=== PATIENT | female | born 1950 | race Caucasian/White ===

== ENCOUNTER 2023-04-12 07:45 | Outpatient (CLI) | payer MEDICARE | END 2023-04-12 07:46 | disposition home or self-care (01) | LOC: RAD 07:45 | PROVIDERS: ATTEND Internal Medicine Hospice and Palliative Medicine | DX: R06.00 Dyspnea, unspecified (principal); J90 Pleural effusion, not elsewhere classified; R91.8 Other nonspecific abnormal finding of lung field | CPT/HCPCS: 71046 ==

== ENCOUNTER 2023-04-20 14:35 | Outpatient (CLI) | payer MEDICARE | END 2023-04-20 14:36 | disposition home or self-care (01) | LOC: BICRAD 14:35 | DX: J90 Pleural effusion, not elsewhere classified (principal) | CPT/HCPCS: 71045 ==

== ENCOUNTER 2023-07-19 08:53 | Outpatient (CLI) | payer MEDICARE | END 2023-07-19 08:54 | disposition home or self-care (01) | LOC: BICULT 08:53 | PROVIDERS: ATTEND Internal Medicine Hospice and Palliative Medicine | DX: R07.89 Other chest pain (principal); L98.8 Other specified disorders of the skin and subcutaneous tissue | CPT/HCPCS: 76999 ==

== ENCOUNTER 2023-08-01 08:46 | Inpatient (IN) | payer MEDICARE ==
[2023-08-01] MEDS ORDERED: Ondansetron PF 4 MG/2 ML Vial ONE (09:27)
[2023-08-01] MEDS ORDERED: Morphine 4 MG/ML VIAL ONE ×2 (09:27→10:11)
[2023-08-01] MEDS ORDERED: Iopamidol-370 76% 500 ML MDV (1 ML CHARGE) ONE (10:05)
[2023-08-01 10:31] LABS: ALT (SGPT) 11 U/L (8-55); AST (SGOT) 22 U/L (5-34); Albumin 3.9 g/dL (3.4-4.8); Alkaline Phosphatase 109 U/L (40-110); Anion Gap 17 mmol/L (10-20); BUN (Urea Nitrogen) 15 mg/dL (9.8-20.1); Bilirubin, Total 1.6 mg/dL (0.2-1.2); Calc. Creatinine Clearance 0 mL/min (70-130); Calcium 9.9 mg/dL (7.8-10.44); Carbon Dioxide 23 mmol/L (23-31); Chloride 103 mmol/L (98-107); Estimated GFR 53; Globulin 3.9 g/dL (2.4-3.5); Glucose 144 mg/dL (80-115); Lipase 36 U/L (8-78); Potassium 4.3 mmol/L (3.5-5.1); Protein, Total 7.8 g/dL (5.8-8.1); Sodium 139 mmol/L (136-145)
[2023-08-01 10:34] LABS: Troponin I Less than 0.010 ng/mL (< 0.028)
[2023-08-01 10:39] LABS: #Basophils 0.1 thou/uL (0.0-0.2); #Eosinphils 0.1 thou/uL (0.0-0.7); #Monocytes 0.6 thou/uL (0.11-0.59); #Neutrophils 8.1 thou/uL (1.40-6.50); %Basophils 0.6 % (0.0-1.0); %Eosinophils 0.6 % (0.0-10.0); %Lymphocytes 11.4 % (21.0-51.0); %Monocytes 5.8 % (0.0-10.0); %Neutrophils 81.3 % (42.0-75.0); Hemoglobin 14.9 g/dL (12.0-16.0); Mean Corpuscular Hemoglobin 29.6 pg (27.0-31.0); Mean Corpuscular Volume 95.4 fl (78.0-98.0); Mean Platelet Volume 10.7 fL (7.4-10.4); Platelet Count 185 10x3/uL (130-400); RBC Distribution Width 13.3 % (11.5-14.5); Red Blood Cell (RBC) Count 5.03 mill/uL (4.20-5.40)
[2023-08-01] MEDS ORDERED: HYDROcodone/Acetaminophen 5/325 mg Tablet PO PRN ×2 (13:23)
[2023-08-01] MEDS ORDERED: Calcium Carbonate 500 MG ChewTAB PO PRN (13:23)
[2023-08-01] MEDS ORDERED: Ondansetron ODT 4 MG TAB PO PRN (13:23)
[2023-08-01] MEDS ORDERED: Senokot S 8.6-50 MG TAB PO PRN (13:23)
[2023-08-01] MEDS ORDERED: Acetaminophen 650 MG Suppository PR PRN (13:23)
[2023-08-01] MEDS ORDERED: Guaifenesin DM 100-10/5 ML UDCUP PO PRN (13:23)
[2023-08-01] MEDS ORDERED: Bisacodyl 5 MG TAB PO PRN (13:23)
[2023-08-01] MEDS ORDERED: Acetaminophen 325 MG TAB PO PRN (13:23)
[2023-08-01] MEDS ORDERED: Bisacodyl 10 MG SUPP PR PRN (13:23)
[2023-08-01 15:21] VITALS: BMI 38.4
[2023-08-01] MEDS ORDERED: Albuterol 200 PUFF (6.7GM INHALER) INH PRN (16:01)
[2023-08-01] MEDS: Lactated Ringer's 1,000 ML IV SCH (16:15)
[2023-08-01] MEDS: Ondansetron PF 4 MG/2 ML Vial IVP PRN (18:06)
[2023-08-01] MEDS: Morphine 2 MG/ML VIAL SLOW IVP PRN (18:06)
[2023-08-01] MEDS ORDERED: Ketorolac Tromethamine 30 MG (1 mL) VIAL IVP SCH (19:45)
[2023-08-02] MEDS: Lactated Ringer's 1,000 ML IV SCH ×4 (02:43→22:57)
[2023-08-02] MEDS: Morphine 2 MG/ML VIAL SLOW IVP PRN (05:10)
[2023-08-02 05:13] LABS: #Basophils 0.1 thou/uL (0.0-0.2); #Eosinphils 0.1 thou/uL (0.0-0.7); #Monocytes 0.9 thou/uL (0.11-0.59); #Neutrophils 10.9 thou/uL (1.40-6.50); %Basophils 0.5 % (0.0-1.0); %Eosinophils 0.5 % (0.0-10.0); %Lymphocytes 7.2 % (21.0-51.0); %Monocytes 7.2 % (0.0-10.0); %Neutrophils 84.3 % (42.0-75.0); Hemoglobin 13.5 g/dL (12.0-16.0); Mean Corpuscular HGB CONC 31.4 g/dL (32.0-36.0); Mean Corpuscular Hemoglobin 29.6 pg (27.0-31.0); Mean Corpuscular Volume 94.3 fl (78.0-98.0); Platelet Count 201 10x3/uL (130-400); RBC Distribution Width 13.3 % (11.5-14.5); Red Blood Cell (RBC) Count 4.56 mill/uL (4.20-5.40)
[2023-08-02 05:45] LABS: ALT (SGPT) 77 U/L (8-55); AST (SGOT) 113 U/L (5-34); Albumin 3.3 g/dL (3.4-4.8); Alkaline Phosphatase 124 U/L (40-110); Anion Gap 13 mmol/L (10-20); BUN (Urea Nitrogen) 17 mg/dL (9.8-20.1); Bilirubin, Total 2.1 mg/dL (0.2-1.2); Calc. Creatinine Clearance 88 mL/min (70-130); Calcium 9.5 mg/dL (7.8-10.44); Carbon Dioxide 25 mmol/L (23-31); Chloride 104 mmol/L (98-107); Estimated GFR 53; Globulin 3.5 g/dL (2.4-3.5); Glucose 92 mg/dL (80-115); Potassium 4.4 mmol/L (3.5-5.1); Protein, Total 6.8 g/dL (5.8-8.1); Sodium 138 mmol/L (136-145)
[2023-08-02] MEDS: Ketorolac Tromethamine 30 MG (1 mL) VIAL IVP SCH ×3 (06:18→17:55)
[2023-08-02] MEDS: Levothyroxine Sodium 125 MCG TAB PO SCH (08:24)
[2023-08-02] MEDS ORDERED: Acetaminophen 650 MG Suppository PR PRN (12:30)
[2023-08-02] MEDS ORDERED: Acetaminophen 325 MG TAB PO PRN (12:30)
[2023-08-02] MEDS ORDERED: HYDROcodone/Acetaminophen 5/325 mg Tablet PO PRN ×2 (12:30)
[2023-08-02 16:10] LABS: Anion Gap 14 mmol/L (10-20); BUN (Urea Nitrogen) 22 mg/dL (9.8-20.1); Calc. Creatinine Clearance 79 mL/min (70-130); Calcium 9.2 mg/dL (7.8-10.44); Carbon Dioxide 24 mmol/L (23-31); Chloride 102 mmol/L (98-107); Estimated GFR 47; Glucose 104 mg/dL (80-115); Potassium 5.3 mmol/L (3.5-5.1); Sodium 135 mmol/L (136-145)
[2023-08-02] MEDS ORDERED: Pantoprazole 40 MG VIAL IVP SCH (19:00)
[2023-08-02] MEDS: Mometasone 100 MCG/Formoterol 5 MCG 120 PUFF INHALER INH SCH (19:17)
[2023-08-03] MEDS: Ketorolac Tromethamine 30 MG (1 mL) VIAL IVP SCH ×4 (00:41→17:27)
[2023-08-03 06:43] LABS: #Basophils 0.1 thou/uL (0.0-0.2); #Monocytes 1.6 thou/uL (0.11-0.59); #Neutrophils 11.7 thou/uL (1.40-6.50); %Basophils 0.4 % (0.0-1.0); %Eosinophils 0.3 % (0.0-10.0); %Lymphocytes 9.6 % (21.0-51.0); %Monocytes 10.5 % (0.0-10.0); %Neutrophils 78.8 % (42.0-75.0); Hematocrit 42.3 % (36.0-47.0); Hemoglobin 13.6 g/dL (12.0-16.0); Mean Corpuscular HGB CONC 32.2 g/dL (32.0-36.0); Mean Corpuscular Hemoglobin 30.3 pg (27.0-31.0); Mean Corpuscular Volume 94.2 fl (78.0-98.0); Mean Platelet Volume 10.8 fL (7.4-10.4); Platelet Count 209 10x3/uL (130-400); RBC Distribution Width 13.5 % (11.5-14.5); Red Blood Cell (RBC) Count 4.49 mill/uL (4.20-5.40); White Blood Cell (WBC) Count 14.8 10x3/uL (4.8-10.8)
[2023-08-03] MEDS: Mometasone 100 MCG/Formoterol 5 MCG 120 PUFF INHALER INH SCH ×2 (06:56→18:32)
[2023-08-03 07:14] LABS: ALT (SGPT) 51 U/L (8-55); AST (SGOT) 45 U/L (5-34); Albumin 3.1 g/dL (3.4-4.8); Alkaline Phosphatase 131 U/L (40-110); Anion Gap 14 mmol/L (10-20); BUN (Urea Nitrogen) 31 mg/dL (9.8-20.1); Bilirubin, Total 3.7 mg/dL (0.2-1.2); Calc. Creatinine Clearance 77 mL/min (70-130); Calcium 9.8 mg/dL (7.8-10.44); Carbon Dioxide 26 mmol/L (23-31); Chloride 103 mmol/L (98-107); Estimated GFR 46; Globulin 3.5 g/dL (2.4-3.5); Glucose 91 mg/dL (80-115); Potassium 5.1 mmol/L (3.5-5.1); Protein, Total 6.6 g/dL (5.8-8.1); Sodium 138 mmol/L (136-145)
[2023-08-03] MEDS: Lactated Ringer's 1,000 ML IV SCH ×2 (08:24→15:18)
[2023-08-03] MEDS: Pantoprazole 40 MG VIAL IVP SCH (08:24)
[2023-08-03] MEDS: Levothyroxine Sodium 125 MCG TAB PO SCH (08:32)
[2023-08-03] MEDS ORDERED: Pantoprazole 40 MG VIAL IVP SCH (09:00)
[2023-08-03] MEDS ORDERED: EPINEPHrine 1 MG/ML VIAL ONE (10:45)
[2023-08-03] MEDS ORDERED: Bupivacaine 0.25% HCL 30 ML VIAL ONE (10:46)
[2023-08-03] MEDS ORDERED: CEFAZOLIN 2 GM VIAL ONE (11:05)
[2023-08-03] MEDS ORDERED: Sodium Chloride 0.9% 100 ML ONE (11:05)
[2023-08-03] MEDS ORDERED: PROPOFOL 20 ML ONE ×2 (11:07→13:00)
[2023-08-03] MEDS ORDERED: fentaNYL PF 100 MCG/2 ML SYRINGE ONE (11:07)
[2023-08-03] MEDS ORDERED: Rocuronium Bromide 10 MG/ML (10ML VIAL) ONE (11:16)
[2023-08-03] MEDS ORDERED: Lidocaine 1% PF 5 ML VIAL ONE (11:16)
[2023-08-03] MEDS ORDERED: SUCCINYLCHOLINE/SOD CL,ISO/PF 200 MG/10 ML SYRINGE FS ONE (11:19)
[2023-08-03] MEDS ORDERED: PHENYLEPHRINE-NS 100 MCG/ML 10 ML SYRINGE ONE (11:19)
[2023-08-03] MEDS ORDERED: Calcium Chloride 1 GM/10 ML Abboject SYRINGE ONE ×2 (11:42→11:43)
[2023-08-03] MEDS ORDERED: Promethazine HCl 25 MG/ML VIAL IM PRN (12:26)
[2023-08-03] MEDS ORDERED: HYDROmorphone 2 MG/ML VIAL SLOW IVP PRN (12:26)
[2023-08-03] MEDS ORDERED: Ondansetron HCl/PF 4 MG/2 ML Vial IVP PRN (12:26)
[2023-08-03] MEDS ORDERED: fentaNYL 50 mcg/mL 1 mL Vial ONE ×2 (13:20→13:39)
[2023-08-03] MEDS: Morphine 2 MG/ML VIAL SLOW IVP PRN (22:02)
[2023-08-03] MEDS: Ondansetron PF 4 MG/2 ML Vial IVP PRN (22:02)
[2023-08-04] MEDS: Lactated Ringer's 1,000 ML IV SCH ×4 (00:37→23:18)
[2023-08-04] MEDS: Ketorolac Tromethamine 30 MG (1 mL) VIAL IVP SCH ×5 (00:38→23:15)
[2023-08-04 06:32] LABS: #Eosinphils 0.3 thou/uL (0.0-0.7); #Monocytes 1.1 thou/uL (0.11-0.59); #Neutrophils 7.1 thou/uL (1.40-6.50); %Basophils 0.4 % (0.0-1.0); %Eosinophils 2.7 % (0.0-10.0); %Lymphocytes 11.6 % (21.0-51.0); %Monocytes 11.1 % (0.0-10.0); %Neutrophils 74.1 % (42.0-75.0); Hematocrit 36.1 % (36.0-47.0); Hemoglobin 11.4 g/dL (12.0-16.0); Mean Corpuscular HGB CONC 31.6 g/dL (32.0-36.0); Mean Corpuscular Hemoglobin 29.8 pg (27.0-31.0); Mean Corpuscular Volume 94.3 fl (78.0-98.0); Mean Platelet Volume 10.7 fL (7.4-10.4); Platelet Count 179 10x3/uL (130-400); RBC Distribution Width 13.7 % (11.5-14.5); Red Blood Cell (RBC) Count 3.83 mill/uL (4.20-5.40); White Blood Cell (WBC) Count 9.6 10x3/uL (4.8-10.8)
[2023-08-04] MEDS: Mometasone 100 MCG/Formoterol 5 MCG 120 PUFF INHALER INH SCH ×2 (06:53→18:50)
[2023-08-04 07:00] LABS: ALT (SGPT) 24 U/L (8-55); AST (SGOT) 18 U/L (5-34); Albumin 2.6 g/dL (3.4-4.8); Alkaline Phosphatase 101 U/L (40-110); Anion Gap 12 mmol/L (10-20); BUN (Urea Nitrogen) 31 mg/dL (9.8-20.1); Calc. Creatinine Clearance 83 mL/min (70-130); Carbon Dioxide 24 mmol/L (23-31); Chloride 106 mmol/L (98-107); Estimated GFR 50; Globulin 2.8 g/dL (2.4-3.5); Glucose 88 mg/dL (80-115); Potassium 4.6 mmol/L (3.5-5.1); Protein, Total 5.4 g/dL (5.8-8.1); Sodium 137 mmol/L (136-145)
[2023-08-04] MEDS: Levothyroxine Sodium 125 MCG TAB PO SCH (08:49)
[2023-08-04] MEDS: Pantoprazole 40 MG VIAL IVP SCH (08:50)
[2023-08-04] MEDS: Enoxaparin 40 MG (0.4 mL) SYRINGE SC SCH (08:50)
[2023-08-04] MEDS: Polyethylene Glycol 3350 17 GM Packet PO SCH (08:51)
[2023-08-05 01:48] VITALS: TEMP 98
[2023-08-05] MEDS: Ketorolac Tromethamine 30 MG (1 mL) VIAL IVP SCH ×2 (05:08→12:07)
[2023-08-05] MEDS ORDERED: Levothyroxine Sodium 125 MCG TAB PO SCH (06:00)
[2023-08-05 06:28] LABS: #Eosinphils 0.4 thou/uL (0.0-0.7); #Monocytes 0.8 thou/uL (0.11-0.59); #Neutrophils 6.3 thou/uL (1.40-6.50); %Basophils 0.2 % (0.0-1.0); %Eosinophils 4.8 % (0.0-10.0); %Monocytes 9.6 % (0.0-10.0); %Neutrophils 72.8 % (42.0-75.0); Hematocrit 34.7 % (36.0-47.0); Hemoglobin 11.1 g/dL (12.0-16.0); Mean Corpuscular Hemoglobin 30.1 pg (27.0-31.0); Mean Platelet Volume 10.4 fL (7.4-10.4); Platelet Count 186 10x3/uL (130-400); RBC Distribution Width 13.3 % (11.5-14.5); Red Blood Cell (RBC) Count 3.69 mill/uL (4.20-5.40); White Blood Cell (WBC) Count 8.6 10x3/uL (4.8-10.8)
[2023-08-05 07:03] LABS: ALT (SGPT) 16 U/L (8-55); AST (SGOT) 12 U/L (5-34); Albumin 2.6 g/dL (3.4-4.8); Alkaline Phosphatase 97 U/L (40-110); Anion Gap 12 mmol/L (10-20); BUN (Urea Nitrogen) 25 mg/dL (9.8-20.1); Bilirubin, Total 1.4 mg/dL (0.2-1.2); Calc. Creatinine Clearance 98 mL/min (70-130); Calcium 8.6 mg/dL (7.8-10.44); Carbon Dioxide 22 mmol/L (23-31); Chloride 107 mmol/L (98-107); Estimated GFR 61; Globulin 2.8 g/dL (2.4-3.5); Glucose 77 mg/dL (80-115); Protein, Total 5.4 g/dL (5.8-8.1); Sodium 137 mmol/L (136-145)
[2023-08-05] MEDS: Mometasone 100 MCG/Formoterol 5 MCG 120 PUFF INHALER INH SCH (07:45)
[2023-08-05 08:13] VITALS: BP 116/73
[2023-08-05] MEDS: Polyethylene Glycol 3350 17 GM Packet PO SCH (08:46)
[2023-08-05] MEDS: Pantoprazole 40 MG VIAL IVP SCH (08:47)
[2023-08-05] MEDS: Enoxaparin 40 MG (0.4 mL) SYRINGE SC SCH (08:47)
[2023-08-05] MEDS: Lactated Ringer's 1,000 ML IV SCH (08:49)
== END 2023-08-05 18:15 | disposition home or self-care (01) | DRG 354 ==
LOC: ERS 08:46 → T4-A 14:44 → OBSVTOIN 08-02 11:13
PROVIDERS: ADMIT Family Medicine; ATTEND Family Medicine
PROC: 0WUF0JZ Supplement Abdominal Wall with Synthetic Substitute, Open Approach (ICD-10-PCS; principal; 2023-08-03)
PROC: 3E033XZ Introduction of Vasopressor into Peripheral Vein, Percutaneous Approach (ICD-10-PCS; 2023-08-03)
DX: K43.9 Ventral hernia without obstruction or gangrene (principal); C18.9 Malignant neoplasm of colon, unspecified; C78.7 Secondary malignant neoplasm of liver and intrahepatic bile duct; C78.00 Secondary malignant neoplasm of unspecified lung; C79.89 Secondary malignant neoplasm of other specified sites; J90 Pleural effusion, not elsewhere classified; C78.1 Secondary malignant neoplasm of mediastinum; J45.909 Unspecified asthma, uncomplicated; Z66 Do not resuscitate; Z51.5 Encounter for palliative care; E03.9 Hypothyroidism, unspecified; G47.30 Sleep apnea, unspecified; N18.9 Chronic kidney disease, unspecified; D72.829 Elevated white blood cell count, unspecified; R91.8 Other nonspecific abnormal finding of lung field; Z88.5 Allergy status to narcotic agent; Z91.040 Latex allergy status; Z79.890 Hormone replacement therapy; Z79.899 Other long term (current) drug therapy; Z92.3 Personal history of irradiation; Z92.21 Personal history of antineoplastic chemotherapy; Z98.890 Other specified postprocedural states; Z90.49 Acquired absence of other specified parts of digestive tract; Z90.710 Acquired absence of both cervix and uterus; Z98.51 Tubal ligation status; Z80.3 Family history of malignant neoplasm of breast
CPT/HCPCS: 36415; 74177; 80053; 83690; 84484; 85025; 88302; 93005; 96361; 96374; 96375; 96376; C1713; C9113; G0378; J0171; J0665; J1650; J1885; J2270; J2272; J2405; J2704; J3010; J3490; J7120; Q0162; Q9967

== ENCOUNTER 2023-08-14 09:06 | Inpatient (IN) | payer MEDICARE ==
[2023-08-14 10:02] LABS: Hematocrit 36.5 % (36.0-47.0); Hemoglobin 11.9 g/dL (12.0-16.0); Manual Diff?? YES; Mean Corpuscular HGB CONC 32.6 g/dL (32.0-36.0); Mean Corpuscular Hemoglobin 29.6 pg (27.0-31.0); Mean Corpuscular Volume 90.8 fl (78.0-98.0); Mean Platelet Volume 9.8 fL (7.4-10.4); Platelet Count 324 10x3/uL (130-400); RBC Distribution Width 13.6 % (11.5-14.5); Red Blood Cell (RBC) Count 4.02 mill/uL (4.20-5.40); White Blood Cell (WBC) Count 36.1 10x3/uL (4.8-10.8)
[2023-08-14 10:05] LABS: Delete Auto Diff?? YES
[2023-08-14 10:22] LABS: INR-International Normal Ratio 1.3; Prothrombin Time 15.9 sec (12.0-14.7)
[2023-08-14 10:23] LABS: ALT (SGPT) Less than 7 U/L (8-55); AST (SGOT) 13 U/L (5-34); Albumin 2.5 g/dL (3.4-4.8); Alkaline Phosphatase 90 U/L (40-110); Anion Gap 13 mmol/L (10-20); BUN (Urea Nitrogen) 24 mg/dL (9.8-20.1); Bilirubin, Total 1.3 mg/dL (0.2-1.2); Calc. Creatinine Clearance 0 mL/min (70-130); Calcium 7.8 mg/dL (7.8-10.44); Carbon Dioxide 22 mmol/L (23-31); Chloride 105 mmol/L (98-107); Estimated GFR 47; Globulin 3.1 g/dL (2.4-3.5); Glucose 122 mg/dL (80-115); Lipase 11 U/L (8-78); Magnesium 1.3 mg/dL (1.6-2.6); PTT 28.5 sec (22.9-36.1); Potassium 3.8 mmol/L (3.5-5.1); Protein, Total 5.6 g/dL (5.8-8.1); Sodium 136 mmol/L (136-145)
[2023-08-14 10:56] LABS: Band 4 % (5-11); CellaVision Operator ID LAB.KW3; Lymphocytes 2 % (21-51); Monocytes 4 % (0-10); Neutrophil 90 % (42-75); Platelet Adequacy Comment Platelets Normal; Target Cells MODERATE= 6-15 cells HPF (0-1); Total Cell Count 102
[2023-08-14] MEDS ORDERED: Iopamidol-370 76% 500 ML MDV (1 ML CHARGE) ONE (10:58)
[2023-08-14] MEDS ORDERED: Piperacillin/Tazobactam 3.375 GM VIAL ONE (12:07)
[2023-08-14] MEDS ORDERED: Vancomycin (BATCH) 2 GM/500 ML BAG ONE (12:29)
[2023-08-14] MEDS ORDERED: Morphine 4 MG/ML VIAL SLOW IVP PRN (13:15)
[2023-08-14] MEDS ORDERED: Ondansetron PF 4 MG/2 ML Vial IVP PRN (13:15)
[2023-08-14] MEDS ORDERED: Ondansetron ODT 4 MG TAB SL PRN (13:15)
[2023-08-14 13:41] LABS: Lactic Acid 2.4 mmol/L (0.5-2.2)
[2023-08-14] MEDS ORDERED: traMADol HCl 50 MG TAB PO PRN ×2 (14:49→14:58)
[2023-08-14] MEDS ORDERED: Ondansetron ODT 4 MG TAB PO PRN ×2 (14:49→14:58)
[2023-08-14] MEDS ORDERED: Piperacillin/Tazobactam 3.375 GM in Sodium Chloride 0.9% 100 ML IVPB SCH (16:00)
[2023-08-14] MEDS: Sodium Chloride 0.9% 1,000 ML IV SCH (16:17)
[2023-08-14] MEDS: Lactated Ringer's 1,000 ML IV SCH (16:20)
[2023-08-14] MEDS: Acetaminophen 500 MG TAB PO SCH (17:17)
[2023-08-14] MEDS: Piperacillin/Tazobactam 3.375 GM in Sodium Chloride 0.9% 100 ML IVPB SCH (17:19)
[2023-08-14] MEDS: TETANUS, DIPHTHERIA TOX,ADULT (TDVAX) 0.5 ML VIAL IM ONE (18:14)
[2023-08-14] MEDS: Famotidine 20 MG TAB PO SCH (21:50)
[2023-08-14] MEDS: Enoxaparin 40 MG (0.4 mL) SYRINGE SC SCH (21:51)
[2023-08-14] MEDS: Morphine 4 MG/ML VIAL SLOW IVP PRN (21:57)
[2023-08-14] MEDS: Ondansetron PF 4 MG/2 ML Vial IVP PRN (21:57)
[2023-08-15 07:12] LABS: #Basophils 0.1 thou/uL (0.0-0.2); #Eosinphils 0.2 thou/uL (0.0-0.7); #Monocytes 1.1 thou/uL (0.11-0.59); #Neutrophils 15.8 thou/uL (1.40-6.50); %Basophils 0.5 % (0.0-1.0); %Eosinophils 0.8 % (0.0-10.0); %Lymphocytes 6.4 % (21.0-51.0); %Monocytes 5.8 % (0.0-10.0); %Neutrophils 85.8 % (42.0-75.0); Hematocrit 33.6 % (36.0-47.0); Hemoglobin 10.5 g/dL (12.0-16.0); Mean Corpuscular HGB CONC 31.3 g/dL (32.0-36.0); Mean Corpuscular Hemoglobin 29.1 pg (27.0-31.0); Mean Corpuscular Volume 93.1 fl (78.0-98.0); Mean Platelet Volume 9.8 fL (7.4-10.4); Platelet Count 293 10x3/uL (130-400); RBC Distribution Width 13.8 % (11.5-14.5); Red Blood Cell (RBC) Count 3.61 mill/uL (4.20-5.40); White Blood Cell (WBC) Count 18.4 10x3/uL (4.8-10.8)
[2023-08-15] MEDS: Levothyroxine Sodium 125 MCG TAB PO SCH (07:31)
[2023-08-15 07:43] LABS: Anion Gap 11 mmol/L (10-20); BUN (Urea Nitrogen) 21 mg/dL (9.8-20.1); Calc. Creatinine Clearance 114 mL/min (70-130); Calcium 7.6 mg/dL (7.8-10.44); Carbon Dioxide 23 mmol/L (23-31); Chloride 108 mmol/L (98-107); Estimated GFR 69; Glucose 83 mg/dL (80-115); Potassium 3.7 mmol/L (3.5-5.1); Sodium 138 mmol/L (136-145)
[2023-08-15] MEDS: BIOTIN 10 MG PO SCH (08:48)
[2023-08-15] MEDS: Cholecalciferol (Vitamin D3) 400 UNITS TAB PO SCH (08:49)
[2023-08-15] MEDS: Prenatal Vitamin 1 TAB PO SCH (08:49)
[2023-08-15] MEDS: Saccharomyces boulardii 250 MG CAP PO SCH (09:33)
[2023-08-15] MEDS ORDERED: EPINEPHrine 1 MG/ML VIAL ONE (16:18)
[2023-08-15] MEDS ORDERED: Bupivacaine PF 0.5% 30 ML VIAL ONE (16:19)
[2023-08-15] MEDS ORDERED: Calcium Chloride 1 GM/10 ML Abboject SYRINGE ONE (16:45)
[2023-08-15] MEDS ORDERED: Albumin 5% 500 ML ONE (16:46)
[2023-08-15] MEDS ORDERED: Ondansetron PF 4 MG/2 ML Vial ONE (16:53)
[2023-08-15] MEDS ORDERED: Rocuronium Bromide 10 MG/ML (10ML VIAL) ONE (16:53)
[2023-08-15] MEDS ORDERED: PROPOFOL 40 ML ONE (16:53)
[2023-08-15] MEDS ORDERED: fentaNYL PF 100 MCG/2 ML SYRINGE ONE (16:53)
[2023-08-15] MEDS ORDERED: Lidocaine 1% PF 5 ML VIAL ONE (16:53)
[2023-08-15] MEDS ORDERED: Dexamethasone 4 mg/ml Vial ONE (16:53)
[2023-08-15] MEDS ORDERED: SUGAMMADEX SODIUM 200 MG/2 ML VIAL ONE (16:53)
[2023-08-15] MEDS ORDERED: PHENYLEPHRINE-NS 100 MCG/ML 10 ML SYRINGE ONE (17:12)
[2023-08-15] MEDS ORDERED: HYDROmorphone/PF 10 MG in Sodium Chloride 0.9% 99 ML IV PRN (18:48)
[2023-08-15] MEDS ORDERED: Ondansetron HCl/PF 4 MG/2 ML Vial IVP PRN (18:48)
[2023-08-15] MEDS ORDERED: Ondansetron PF 4 MG/2 ML Vial IVP PRN (18:48)
[2023-08-15] MEDS ORDERED: diphenhydrAMINE 50 MG/ML VIAL IM PRN (18:48)
[2023-08-15] MEDS ORDERED: diphenhydrAMINE 25 MG CAP PO PRN (18:48)
[2023-08-15] MEDS ORDERED: diphenhydrAMINE 50 MG/ML VIAL IVP PRN (18:48)
[2023-08-15] MEDS ORDERED: Naloxone HCl 0.4 mg/ml Vial IV PRN (18:48)
[2023-08-15] MEDS ORDERED: HYDROmorphone 2 MG/ML VIAL SLOW IVP PRN (18:48)
[2023-08-15] MEDS ORDERED: Promethazine HCl 25 MG/ML VIAL IM PRN (18:48)
[2023-08-15] MEDS ORDERED: Communication Order-Pharmacy FS SCH (19:00)
[2023-08-15] MEDS ORDERED: Ketorolac Tromethamine 30 MG (1 mL) VIAL ONE (19:02)
[2023-08-15] MEDS ORDERED: HYDROmorphone 2 MG/ML VIAL ONE (19:10)
[2023-08-16 04:46] LABS: Hematocrit 30.9 % (36.0-47.0); Hemoglobin 9.8 g/dL (12.0-16.0); Manual Diff?? YES; Mean Corpuscular HGB CONC 31.7 g/dL (32.0-36.0); Mean Corpuscular Hemoglobin 29.4 pg (27.0-31.0); Mean Corpuscular Volume 92.8 fl (78.0-98.0); Mean Platelet Volume 10.5 fL (7.4-10.4); Platelet Count 275 10x3/uL (130-400); RBC Distribution Width 13.9 % (11.5-14.5); Red Blood Cell (RBC) Count 3.33 mill/uL (4.20-5.40); White Blood Cell (WBC) Count 19.1 10x3/uL (4.8-10.8)
[2023-08-16 04:52] LABS: Delete Auto Diff?? YES
[2023-08-16 05:25] LABS: Band 24 % (5-11); Burr Cells SLIGHT = 2-5 cells HPF (0-1); CellaVision Operator ID lab.abc; Lymphocytes 3 % (21-51); Monocytes 4 % (0-10); Neutrophil 70 % (42-75); Platelet Adequacy Comment Platelets Normal; Smudge Cells 8.8 %; Total Cell Count 102
[2023-08-16 05:59] LABS: ALT (SGPT) Less than 7 U/L (8-55); AST (SGOT) 13 U/L (5-34); Albumin 2.3 g/dL (3.4-4.8); Alkaline Phosphatase 98 U/L (40-110); Anion Gap 13 mmol/L (10-20); BUN (Urea Nitrogen) 21 mg/dL (9.8-20.1); Calc. Creatinine Clearance 97 mL/min (70-130); Carbon Dioxide 19 mmol/L (23-31); Chloride 110 mmol/L (98-107); Estimated GFR 57; Globulin 2.3 g/dL (2.4-3.5); Glucose 90 mg/dL (80-115); Potassium 4.1 mmol/L (3.5-5.1); Protein, Total 4.6 g/dL (5.8-8.1); Sodium 138 mmol/L (136-145)
[2023-08-16] MEDS: Pantoprazole 40 MG VIAL IVP SCH (08:16)
[2023-08-16] MEDS: Ketorolac Tromethamine 30 MG (1 mL) VIAL IVP PRN (15:53)
[2023-08-17 04:48] LABS: Hematocrit 28.6 % (36.0-47.0); Hemoglobin 9.1 g/dL (12.0-16.0); Manual Diff?? YES; Mean Corpuscular HGB CONC 31.8 g/dL (32.0-36.0); Mean Corpuscular Hemoglobin 29.6 pg (27.0-31.0); Mean Corpuscular Volume 93.2 fl (78.0-98.0); Mean Platelet Volume 10.3 fL (7.4-10.4); Platelet Count 286 10x3/uL (130-400); RBC Distribution Width 14.4 % (11.5-14.5); Red Blood Cell (RBC) Count 3.07 mill/uL (4.20-5.40); White Blood Cell (WBC) Count 19.3 10x3/uL (4.8-10.8)
[2023-08-17 05:18] LABS: Delete Auto Diff?? YES
[2023-08-17 06:07] LABS: Anisocytosis MODERATE=16-30 cells HPF (0-5); Band 23 % (5-11); Burr Cells MODERATE= 6-15 cells HPF (0-1); CellaVision Operator ID LAB.JMM; Lymphocytes 7 % (21-51); Macrocytosis SLIGHT = 6-15 cells HPF (0-5); Monocytes 1 % (0-10); Neutrophil 69 % (42-75); Platelet Adequacy Comment Platelets Normal; Poikilocytosis MODERATE=16-30 cells HPF (0-5); Polychromasia SLIGHT = 2-3 cells HPF (0-2); Smudge Cells 17.8 %; Total Cell Count 101
[2023-08-18 00:45] LABS: Hematocrit 31.3 % (36.0-47.0); Hemoglobin 10.2 g/dL (12.0-16.0); Manual Diff?? YES; Mean Corpuscular HGB CONC 32.6 g/dL (32.0-36.0); Mean Corpuscular Hemoglobin 29.7 pg (27.0-31.0); Platelet Count 291 10x3/uL (130-400); RBC Distribution Width 14.6 % (11.5-14.5); Red Blood Cell (RBC) Count 3.44 mill/uL (4.20-5.40)
[2023-08-18 00:50] LABS: Delete Auto Diff?? YES
[2023-08-18] MEDS: Albumin 5% 25 GM (500 mL) BOT IVPB SCH (01:01)
[2023-08-18 01:15] LABS: Anisocytosis SLIGHT = 6-15 cells HPF (0-5); Band 29 % (5-11); CellaVision Operator ID LAB.CLH1; Eosinophils 2 % (0-10); Hypochromia SLIGHT = 6-15 cells HPF (0-5); Large Platelets 5.5 % (0-5); Lymphocytes 5 % (21-51); Metamyelocyte 2 % (0-0); Monocytes 11 % (0-10); Neutrophil 51 % (42-75); Platelet Adequacy Comment Platelets Normal; Poikilocytosis SLIGHT = 6-15 cells HPF (0-5); Polychromasia SLIGHT = 2-3 cells HPF (0-2); Reactive Lymphocytes 1 % (0-10); Total Cell Count 109
[2023-08-18] MEDS ORDERED: Lactated Ringer's 1,000 ML IV SCH ×2 (01:45→06:45)
[2023-08-18 05:53] LABS: Phosphorus 4.8 mg/dL (2.3-4.7)
[2023-08-18 06:09] LABS: ALT (SGPT) Less than 7 U/L (8-55); Bilirubin, Total 0.9 mg/dL (0.2-1.2); Estimated GFR 17; Globulin 2.3 g/dL (2.4-3.5); Glucose 46 mg/dL (80-115); Magnesium 1.4 mg/dL (1.6-2.6); Potassium 3.9 mmol/L (3.5-5.1)
[2023-08-18] MEDS: Lactated Ringer's 500 ML IV SCH ×2 (06:44→08:12)
[2023-08-18 08:07] LABS: AST (SGOT) 13 U/L (5-34); Albumin 2.2 g/dL (3.4-4.8); Alkaline Phosphatase 89 U/L (40-110); Anion Gap 15 mmol/L (10-20); BUN (Urea Nitrogen) 34 mg/dL (9.8-20.1); Calc. Creatinine Clearance 35 mL/min (70-130); Calcium 7.8 mg/dL (7.8-10.44); Carbon Dioxide 17 mmol/L (23-31); Chloride 109 mmol/L (98-107); Protein, Total 4.5 g/dL (5.8-8.1); Sodium 137 mmol/L (136-145)
[2023-08-18] MEDS: Dextrose 50% Abboject 50 ML SYRINGE SLOW IVP SCH ×2 (09:23→11:40)
[2023-08-18] MEDS: Dextrose 5 % And 0.9 % NaCl 1,000 ML IV SCH (11:22)
[2023-08-18] MEDS ORDERED: Albumin 5% 25 GM (500 mL) BOT IVPB SCH (12:00)
[2023-08-18] MEDS: Albumin 25% 25 GM (100 mL) BOT IVPB SCH ×2 (12:07→16:40)
[2023-08-18] MEDS ORDERED: PROPOFOL 20 ML ONE (12:49)
[2023-08-18] MEDS ORDERED: SUCCINYLCHOLINE/SOD CL,ISO/PF 200 MG/10 ML SYRINGE FS ONE (12:50)
[2023-08-18] MEDS ORDERED: Rocuronium Bromide 10 MG/ML (10ML VIAL) ONE (12:50)
[2023-08-18] MEDS ORDERED: Lidocaine 1% PF 5 ML VIAL ONE (12:50)
[2023-08-18] MEDS ORDERED: fentaNYL PF 100 MCG/2 ML SYRINGE ONE (13:25)
[2023-08-18] MEDS ORDERED: SUGAMMADEX SODIUM 200 MG/2 ML VIAL ONE (14:23)
[2023-08-18] MEDS ORDERED: fentaNYL 50 mcg/mL 1 mL Vial ONE ×2 (15:10→15:28)
[2023-08-18] MEDS ORDERED: Morphine 4 MG/ML VIAL SLOW IVP PRN (15:50)
[2023-08-18] MEDS: Sodium Chloride 0.9% 1,000 ML IV SCH (16:35)
[2023-08-18 18:15] LABS: Hematocrit 25.5 % (36.0-47.0); Hemoglobin 8.1 g/dL (12.0-16.0); Manual Diff?? YES; Mean Corpuscular HGB CONC 31.8 g/dL (32.0-36.0); Mean Corpuscular Hemoglobin 29.7 pg (27.0-31.0); Mean Corpuscular Volume 93.4 fl (78.0-98.0); Mean Platelet Volume 9.8 fL (7.4-10.4); Platelet Count 255 10x3/uL (130-400); RBC Distribution Width 14.7 % (11.5-14.5); Red Blood Cell (RBC) Count 2.73 mill/uL (4.20-5.40); White Blood Cell (WBC) Count 23.6 10x3/uL (4.8-10.8)
[2023-08-18 18:32] LABS: Delete Auto Diff?? YES
[2023-08-18 18:54] LABS: Band 36 % (5-11); Burr Cells MODERATE= 6-15 cells HPF (0-1); CellaVision Operator ID LAB.MJL; Dohle Bodies SLIGHT; Eosinophils 2 % (0-10); Large Platelets 2.8 % (0-5); Lymphocytes 10 % (21-51); Metamyelocyte 6 % (0-0); Monocytes 6 % (0-10); Neutrophil 40 % (42-75); Ovalocytes SLIGHT = 2-5 cells HPF (0-1); Platelet Adequacy Comment Platelets Normal; Poikilocytosis SLIGHT = 6-15 cells HPF (0-5); Polychromasia SLIGHT = 2-3 cells HPF (0-2); Total Cell Count 109; Vacuoles SLIGHT
[2023-08-18] MEDS: Lactated Ringer's 1,000 ML IV SCH (20:06)
[2023-08-18] MEDS: Dextrose 5 %-0.45 % NaCl 1,000 ML IV SCH (20:07)
[2023-08-18] MEDS ORDERED: Glucagon 1 MG/ML KIT IM PRN (20:10)
[2023-08-18] MEDS ORDERED: Dextrose 5% in Water 1,000 ML IV PRN (20:10)
[2023-08-18] MEDS: NOREPINEPHRINE 8 MG/250 ML-D5W 250 ML IVPB SCH (20:24)
[2023-08-18] MEDS: Vasopressin 20 UNITS in Sodium Chloride 0.9% 50 ML IV SCH (20:30)
[2023-08-18 20:56] LABS: Critical Call Chem-Lactate NUR.SJB@2056; Lactic Acid 4.3 mmol/L (0.5-2.2)
[2023-08-18 20:59] LABS: ALT (SGPT) 8 U/L (8-55); AST (SGOT) 16 U/L (5-34); Albumin 2.6 g/dL (3.4-4.8); Alkaline Phosphatase 95 U/L (40-110); Anion Gap 15 mmol/L (10-20); BUN (Urea Nitrogen) 33 mg/dL (9.8-20.1); Bilirubin, Total 1.2 mg/dL (0.2-1.2); Calc. Creatinine Clearance 34 mL/min (70-130); Calcium 7.8 mg/dL (7.8-10.44); Carbon Dioxide 14 mmol/L (23-31); Chloride 110 mmol/L (98-107); Estimated GFR 16; Globulin 1.9 g/dL (2.4-3.5); Glucose 83 mg/dL (80-115); Potassium 3.9 mmol/L (3.5-5.1); Protein, Total 4.5 g/dL (5.8-8.1); Sodium 135 mmol/L (136-145)
[2023-08-18] MEDS ORDERED: Enoxaparin 30 MG (0.3 mL) SYRINGE SC SCH (21:00)
[2023-08-18] MEDS: fentaNYL 50 mcg/mL 1 mL Vial SLOW IVP PRN (22:40)
[2023-08-18] MEDS: Sodium Bicarbonate 150 MEQ in Dextrose 5% in Water 1,000 ML IV SCH (22:56)
[2023-08-19 00:27] LABS: Hemoglobin 8.4 g/dL (12.0-16.0)
[2023-08-19] MEDS: Sodium Bicarbonate 150 MEQ in Dextrose 5% in Water 1,000 ML IV SCH ×2 (02:30→04:39)
[2023-08-19] MEDS: Lactated Ringer's 1,000 ML IV SCH (02:34)
[2023-08-19 04:02] LABS: Hematocrit 25.7 % (36.0-47.0); Hemoglobin 8.3 g/dL (12.0-16.0); Manual Diff?? YES; Mean Corpuscular HGB CONC 32.3 g/dL (32.0-36.0); Mean Corpuscular Hemoglobin 29.9 pg (27.0-31.0); Mean Corpuscular Volume 92.4 fl (78.0-98.0); Mean Platelet Volume 9.8 fL (7.4-10.4); Platelet Count 280 10x3/uL (130-400); Red Blood Cell (RBC) Count 2.78 mill/uL (4.20-5.40); White Blood Cell (WBC) Count 24.3 10x3/uL (4.8-10.8)
[2023-08-19 04:05] LABS: Delete Auto Diff?? YES
[2023-08-19 04:16] LABS: INR-International Normal Ratio 1.6; Prothrombin Time 18.9 sec (12.0-14.7)
[2023-08-19 04:17] LABS: PTT 51.5 sec (22.9-36.1)
[2023-08-19 04:23] LABS: Lactic Acid 3.8 mmol/L (0.5-2.2)
[2023-08-19 04:30] LABS: Phosphorus 3.5 mg/dL (2.3-4.7)
[2023-08-19 04:32] LABS: ALT (SGPT) Less than 7 U/L (8-55); AST (SGOT) 15 U/L (5-34); Albumin 2.8 g/dL (3.4-4.8); Alkaline Phosphatase 104 U/L (40-110); Anion Gap 18 mmol/L (10-20); BUN (Urea Nitrogen) 31 mg/dL (9.8-20.1); Calc. Creatinine Clearance 35 mL/min (70-130); Calcium 7.8 mg/dL (7.8-10.44); Carbon Dioxide 16 mmol/L (23-31); Chloride 106 mmol/L (98-107); Estimated GFR 17; Globulin 1.9 g/dL (2.4-3.5); Glucose 129 mg/dL (80-115); Magnesium 1.4 mg/dL (1.6-2.6); Potassium 3.7 mmol/L (3.5-5.1); Protein, Total 4.7 g/dL (5.8-8.1); Sodium 136 mmol/L (136-145)
[2023-08-19 04:49] LABS: Anisocytosis SLIGHT = 6-15 cells HPF (0-5); Band 2 % (5-11); Burr Cells MODERATE= 6-15 cells HPF (0-1); CellaVision Operator ID lab.sh2; Eosinophils 2 % (0-10); Lymphocytes 5 % (21-51); Macrocytosis SLIGHT = 6-15 cells HPF (0-5); Monocytes 1 % (0-10); Neutrophil 90 % (42-75); Platelet Adequacy Comment Platelets Normal; Poikilocytosis SLIGHT = 6-15 cells HPF (0-5); Polychromasia SLIGHT = 2-3 cells HPF (0-2); Total Cell Count 101; Vacuoles SLIGHT
[2023-08-19] MEDS: Magnesium 2 GM/50 ML(in water) 2 GM in Premix 1 BAG IVPB SCH (05:17)
[2023-08-19] MEDS: Pantoprazole 40 MG VIAL IVP SCH (08:00)
[2023-08-19] MEDS: fentaNYL 50 mcg/hour Patch TD SCH (10:10)
[2023-08-19] MEDS: Hydrocortisone Sod Succ/PF 100 mg/2 ml Vial IVP SCH (10:12)
[2023-08-19] MEDS: Multivitamins, Adult 10 ML, TRACE ELEMENT CONCENTRATE 1 ML in D15W-AA 5% with Lytes 2,0... IV SCH (14:26)
[2023-08-19] MEDS ORDERED: HumaLOG 300 UNITS/3 ML VIAL SC PRN (21:55)
[2023-08-19] MEDS: Insulin Regular 300 UNITS/3 ML VIAL SC PRN (22:07)
[2023-08-20 00:59] LABS: Hematocrit 25.3 % (36.0-47.0); Hemoglobin 8.3 g/dL (12.0-16.0); Manual Diff?? YES; Mean Corpuscular HGB CONC 32.8 g/dL (32.0-36.0); Mean Corpuscular Volume 91.3 fl (78.0-98.0); Mean Platelet Volume 9.9 fL (7.4-10.4); Platelet Count 207 10x3/uL (130-400); RBC Distribution Width 14.8 % (11.5-14.5); Red Blood Cell (RBC) Count 2.77 mill/uL (4.20-5.40)
[2023-08-20 01:00] LABS: Delete Auto Diff?? YES
[2023-08-20 01:24] LABS: Band 13 % (5-11); CellaVision Operator ID LAB.CLH1; Hypochromia SLIGHT = 6-15 cells HPF (0-5); Lymphocytes 12 % (21-51); Metamyelocyte 1 % (0-0); Monocytes 5 % (0-10); Neutrophil 69 % (42-75); Nucleated RBC (Manual Ct) 2 % (0); Platelet Adequacy Comment Platelets Normal; Polychromasia SLIGHT = 2-3 cells HPF (0-2); Target Cells SLIGHT = 2-5 cells HPF (0-1); Total Cell Count 101
[2023-08-20 01:29] LABS: Critical Call Chem-Lactate MDEZOSO500 @0126; Lactic Acid 4.2 mmol/L (0.5-2.2)
[2023-08-20 01:32] LABS: Chloride 101 mmol/L (98-107); Potassium 3.1 mmol/L (3.5-5.1); Sodium 137 mmol/L (136-145)
[2023-08-20 01:33] LABS: Calcium 8.1 mg/dL (7.8-10.44); Globulin 2.2 g/dL (2.4-3.5); Glucose 232 mg/dL (80-115); Protein, Total 5.2 g/dL (5.8-8.1)
[2023-08-20 01:35] LABS: Anion Gap 13 mmol/L (10-20); Bilirubin, Total 0.9 mg/dL (0.2-1.2); Carbon Dioxide 26 mmol/L (23-31)
[2023-08-20 01:36] LABS: Alkaline Phosphatase 120 U/L (40-110)
[2023-08-20 01:37] LABS: BUN (Urea Nitrogen) 33 mg/dL (9.8-20.1); Calc. Creatinine Clearance 37 mL/min (70-130); Estimated GFR 16
[2023-08-20 01:38] LABS: AST (SGOT) 18 U/L (5-34)
[2023-08-20 01:39] LABS: ALT (SGPT) 13 U/L (8-55); Magnesium 1.9 mg/dL (1.6-2.6)
[2023-08-20] MEDS: Lactated Ringer's 1,000 ML IV SCH (02:33)
[2023-08-20] MEDS: Ondansetron PF 4 MG/2 ML Vial IVP PRN (02:34)
[2023-08-20] MEDS: Potassium Chloride 40 MEQ in Premix 1 BAG IVPB SCH (02:40)
[2023-08-20] MEDS: Heparin 5,000 UNITS/ML VIAL SC SCH (08:22)
[2023-08-21 05:07] LABS: Hematocrit 25.9 % (36.0-47.0); Hemoglobin 8.5 g/dL (12.0-16.0); Manual Diff?? YES; Mean Corpuscular HGB CONC 32.8 g/dL (32.0-36.0); Mean Corpuscular Hemoglobin 30.6 pg (27.0-31.0); Mean Corpuscular Volume 93.2 fl (78.0-98.0); Platelet Count 179 10x3/uL (130-400); RBC Distribution Width 14.9 % (11.5-14.5); Red Blood Cell (RBC) Count 2.78 mill/uL (4.20-5.40); White Blood Cell (WBC) Count 32.1 10x3/uL (4.8-10.8)
[2023-08-21 05:19] LABS: Delete Auto Diff?? YES
[2023-08-21 05:31] LABS: ALT (SGPT) 10 U/L (8-55); AST (SGOT) 20 U/L (5-34); Albumin 2.9 g/dL (3.4-4.8); Alkaline Phosphatase 120 U/L (40-110); Anion Gap 12 mmol/L (10-20); BUN (Urea Nitrogen) 41 mg/dL (9.8-20.1); Bilirubin, Total 1.1 mg/dL (0.2-1.2); Calc. Creatinine Clearance 43 mL/min (70-130); Calcium 8.8 mg/dL (7.8-10.44); Carbon Dioxide 27 mmol/L (23-31); Chloride 102 mmol/L (98-107); Estimated GFR 18; Globulin 2.6 g/dL (2.4-3.5); Glucose 148 mg/dL (80-115); Potassium 3.5 mmol/L (3.5-5.1); Protein, Total 5.5 g/dL (5.8-8.1); Sodium 137 mmol/L (136-145)
[2023-08-21 05:45] LABS: Anisocytosis SLIGHT = 6-15 cells HPF (0-5); CellaVision Operator ID lab.sh2; Lymphocytes 6 % (21-51); Monocytes 9 % (0-10); Neutrophil 85 % (42-75); Nucleated RBC (Manual Ct) 3 % (0); Ovalocytes SLIGHT = 2-5 cells HPF (0-1); Platelet Adequacy Comment Platelets Normal; Polychromasia SLIGHT = 2-3 cells HPF (0-2); Smudge Cells 8.8 %; Total Cell Count 102
[2023-08-21] MEDS: Furosemide 20 MG (2 mL) VIAL SLOW IVP SCH ×2 (11:41→12:06)
[2023-08-21] MEDS: QUEtiapine 25 MG TAB PO SCH ×3 (11:42→21:45)
[2023-08-21] MEDS: Levothyroxine 100 MCG SDV SLOW IVP SCH (12:06)
[2023-08-21] MEDS: HYDROcodone/Acetaminophen 5/325 mg Tablet PO PRN (13:10)
[2023-08-21] MEDS: Fat Emulsion 250 ML, Multivitamins, Adult 10 ML, TRACE ELEMENT CONCENTRATE 1 ML in D15W... IV SCH (15:03)
[2023-08-21] MEDS ORDERED: QUEtiapine 25 MG TAB PO SCH (21:00)
[2023-08-21] MEDS: Haloperidol Lactate 5 MG/ML VIAL SLOW IVP SCH (21:43)
[2023-08-22 04:48] LABS: Hematocrit 28.6 % (36.0-47.0); Hemoglobin 8.9 g/dL (12.0-16.0); Manual Diff?? YES; Mean Corpuscular HGB CONC 31.1 g/dL (32.0-36.0); Mean Corpuscular Hemoglobin 29.3 pg (27.0-31.0); Mean Corpuscular Volume 94.1 fl (78.0-98.0); Mean Platelet Volume 10.3 fL (7.4-10.4); Platelet Count 172 10x3/uL (130-400); RBC Distribution Width 15.1 % (11.5-14.5); Red Blood Cell (RBC) Count 3.04 mill/uL (4.20-5.40); White Blood Cell (WBC) Count 25.7 10x3/uL (4.8-10.8)
[2023-08-22 04:54] LABS: Delete Auto Diff?? YES
[2023-08-22 05:14] LABS: ALT (SGPT) 10 U/L (8-55); AST (SGOT) 25 U/L (5-34); Albumin 2.8 g/dL (3.4-4.8); Alkaline Phosphatase 116 U/L (40-110); Anion Gap 10 mmol/L (10-20); BUN (Urea Nitrogen) 47 mg/dL (9.8-20.1); Bilirubin, Total 0.9 mg/dL (0.2-1.2); Calc. Creatinine Clearance 56 mL/min (70-130); Calcium 8.8 mg/dL (7.8-10.44); Carbon Dioxide 29 mmol/L (23-31); Chloride 104 mmol/L (98-107); Estimated GFR 25; Globulin 2.7 g/dL (2.4-3.5); Glucose 112 mg/dL (80-115); Magnesium 2.1 mg/dL (1.6-2.6); Potassium 3.3 mmol/L (3.5-5.1); Protein, Total 5.5 g/dL (5.8-8.1); Sodium 140 mmol/L (136-145)
[2023-08-22 05:25] LABS: Band 6 % (5-11); CellaVision Operator ID LAB.CLH1; Eosinophils 2 % (0-10); Hypochromia SLIGHT = 6-15 cells HPF (0-5); Lymphocytes 5 % (21-51); Metamyelocyte 6 % (0-0); Monocytes 3 % (0-10); Myelocyte 1 % (0-0); Neutrophil 73 % (42-75); Nucleated RBC (Manual Ct) 5 % (0); Platelet Adequacy Comment Platelets Normal; Polychromasia SLIGHT = 2-3 cells HPF (0-2); Promyelocytes 4 % (0-0); Reactive Lymphocytes 2 % (0-10); Target Cells SLIGHT = 2-5 cells HPF (0-1); Total Cell Count 109
[2023-08-22] MEDS: Potassium Chloride 40 MEQ in Premix 1 BAG IVPB SCH (08:19)
[2023-08-23] MEDS: Albuterol 200 PUFF (6.7GM INHALER) INH PRN (03:45)
[2023-08-23] MEDS: Furosemide 40 MG (4 mL) VIAL SLOW IVP SCH (08:35)
[2023-08-23] MEDS: Morphine 4 MG/ML VIAL SLOW IVP PRN (09:46)
[2023-08-23] MEDS: Levothyroxine Sodium 125 MCG TAB PO SCH (10:02)
[2023-08-23] MEDS: Mometasone 100 MCG/Formoterol 5 MCG 120 PUFF INHALER INH SCH (20:17)
[2023-08-24] MEDS: Levothyroxine Sodium 125 MCG TAB PO SCH (05:13)
[2023-08-24] MEDS: Ipratropium/Albuterol 3 ML NEB NEB PRN (05:25)
[2023-08-24] MEDS: Furosemide 40 MG (4 mL) VIAL SLOW IVP SCH (08:20)
[2023-08-24] MEDS: Gabapentin 100 MG CAP PO SCH (21:18)
[2023-08-24] MEDS: QUEtiapine 25 MG TAB PO SCH (21:18)
[2023-08-25 08:09] LABS: #Basophils 0.1 thou/uL (0.0-0.2); #Eosinphils 0.6 thou/uL (0.0-0.7); #Neutrophils 16.3 thou/uL (1.40-6.50); %Basophils 0.3 % (0.0-1.0); %Eosinophils 2.9 % (0.0-10.0); %Lymphocytes 5.3 % (21.0-51.0); %Monocytes 5.2 % (0.0-10.0); %Neutrophils 84.5 % (42.0-75.0); Hematocrit 29.9 % (36.0-47.0); Hemoglobin 9.5 g/dL (12.0-16.0); Mean Corpuscular HGB CONC 31.8 g/dL (32.0-36.0); Mean Corpuscular Hemoglobin 29.9 pg (27.0-31.0); Platelet Count 223 10x3/uL (130-400); RBC Distribution Width 16.2 % (11.5-14.5); Red Blood Cell (RBC) Count 3.18 mill/uL (4.20-5.40); White Blood Cell (WBC) Count 19.3 10x3/uL (4.8-10.8)
[2023-08-25 08:34] LABS: Anion Gap 14 mmol/L (10-20); BUN (Urea Nitrogen) 22 mg/dL (9.8-20.1); Calc. Creatinine Clearance 119 mL/min (70-130); Calcium 8.8 mg/dL (7.8-10.44); Carbon Dioxide 28 mmol/L (23-31); Chloride 101 mmol/L (98-107); Estimated GFR 61; Glucose 91 mg/dL (80-115); Potassium 4.1 mmol/L (3.5-5.1); Sodium 139 mmol/L (136-145)
[2023-08-25] MEDS ORDERED: Promethazine HCl 12.5 MG in Sodium Chloride 0.9% 50 ML IVPB PRN (10:21)
[2023-08-25] MEDS: Metoclopramide HCl 10 MG (2 mL) VIAL IVP PRN (10:34)
[2023-08-27 11:40] LABS: #Basophils 0.1 thou/uL (0.0-0.2); #Eosinphils 0.7 thou/uL (0.0-0.7); #Monocytes 0.9 thou/uL (0.11-0.59); #Neutrophils 12.7 thou/uL (1.40-6.50); %Basophils 0.5 % (0.0-1.0); %Eosinophils 4.4 % (0.0-10.0); %Lymphocytes 5.7 % (21.0-51.0); %Neutrophils 82.7 % (42.0-75.0); Hematocrit 28.9 % (36.0-47.0); Hemoglobin 9.2 g/dL (12.0-16.0); Mean Corpuscular HGB CONC 31.8 g/dL (32.0-36.0); Mean Corpuscular Hemoglobin 30.5 pg (27.0-31.0); Mean Corpuscular Volume 95.7 fl (78.0-98.0); Mean Platelet Volume 9.8 fL (7.4-10.4); Platelet Count 238 10x3/uL (130-400); RBC Distribution Width 16.1 % (11.5-14.5); Red Blood Cell (RBC) Count 3.02 mill/uL (4.20-5.40); White Blood Cell (WBC) Count 15.4 10x3/uL (4.8-10.8)
[2023-08-27 12:09] LABS: Anion Gap 10 mmol/L (10-20); BUN (Urea Nitrogen) 18 mg/dL (9.8-20.1); Calc. Creatinine Clearance 105 mL/min (70-130); Calcium 8.5 mg/dL (7.8-10.44); Carbon Dioxide 34 mmol/L (23-31); Chloride 97 mmol/L (98-107); Estimated GFR 55; Glucose 112 mg/dL (80-115); Potassium 3.4 mmol/L (3.5-5.1); Sodium 138 mmol/L (136-145)
[2023-08-29 03:56] VITALS: BMI 45.1
[2023-08-30 08:16] VITALS: BP 121/70; TEMP 98
[2023-08-30] MEDS: guaiFENesin ER 600 MG TAB PO SCH ×2 (09:58→10:06)
[2023-08-30] MEDS ORDERED: Morphine 2 MG/ML VIAL SLOW IVP ONE (10:44)
[2023-08-30] MEDS: Morphine 4 MG/ML VIAL ONE (10:59)
[2023-08-30] MEDS ORDERED: Morphine 4 MG/ML VIAL SLOW IVP SCH (11:15)
== END 2023-08-30 12:20 | DRG 856 ==
LOC: ERS 09:06 → T4-B 13:04 → IMCU/EMU 08-18 19:36 → CCU 08-18 20:38 → SJJU 08-20 21:35
PROVIDERS: ADMIT Specialist; ATTEND Specialist
PROC: 0DBB0ZZ Excision of Ileum, Open Approach (ICD-10-PCS; principal; 2023-08-16)
PROC: 0DBE0ZZ Excision of Large Intestine, Open Approach (ICD-10-PCS; 2023-08-16)
PROC: 0D1B0ZL Bypass Ileum to Transverse Colon, Open Approach (ICD-10-PCS; 2023-08-16)
PROC: 05H633Z Insertion of Infusion Device into Left Subclavian Vein, Percutaneous Approach (ICD-10-PCS; 2023-08-16)
PROC: 0DBB0ZZ Excision of Ileum, Open Approach (ICD-10-PCS; 2023-08-18)
PROC: 0DSB0ZZ Reposition Ileum, Open Approach (ICD-10-PCS; 2023-08-18)
PROC: 3E0436Z Introduction of Nutritional Substance into Central Vein, Percutaneous Approach (ICD-10-PCS; 2023-08-19)
DX: T81.49XA Infection following a procedure, other surgical site, initial encounter (principal); A41.9 Sepsis, unspecified organism; K65.8 Other peritonitis; R65.21 Severe sepsis with septic shock; C78.00 Secondary malignant neoplasm of unspecified lung; T85.79XA Infection and inflammatory reaction due to other internal prosthetic devices, implants and grafts, initial encounter; C78.7 Secondary malignant neoplasm of liver and intrahepatic bile duct; E87.20 Acidosis, unspecified; N17.9 Acute kidney failure, unspecified; K63.2 Fistula of intestine; L02.211 Cutaneous abscess of abdominal wall; K94.19 Other complications of enterostomy; E16.2 Hypoglycemia, unspecified; E88.09 Other disorders of plasma-protein metabolism, not elsewhere classified; Y83.8 Other surgical procedures as the cause of abnormal reaction of the patient, or of later complication, without mention of misadventure at the time of the procedure; F41.9 Anxiety disorder, unspecified; Z66 Do not resuscitate; E03.9 Hypothyroidism, unspecified; Z98.51 Tubal ligation status; Z79.891 Long term (current) use of opiate analgesic; Z79.899 Other long term (current) drug therapy; Z51.5 Encounter for palliative care; Z98.84 Bariatric surgery status; Z90.710 Acquired absence of both cervix and uterus; Z90.49 Acquired absence of other specified parts of digestive tract
CPT/HCPCS: 36415; 36416; 70450; 71045; 74176; 74177; 80048; 80053; 82533; 83605; 83690; 83735; 84100; 85025; 85610; 85730; 86850; 86900; 86901; 87040; 87070; 87077; 87149; 87186; 87205; 88307; 90714; 93005; 94640; 94664; 96374; 96375; 97139; A4314; C1751; C1776; C9113; J0171; J0665; J1100; J1170; J1644; J1650; J1720; J1815; J1885; J1940; J2270; J2405; J2543; J2704; J2765; J3010; J3370; J3475; J3480; J3490; J7042; J7050; J7070; J7120; J7620; J7999; P9045; P9047; Q9967

== ENCOUNTER 2023-11-30 11:37 | Outpatient (CLI) | payer MEDICARE | END 2023-11-30 11:38 | disposition home or self-care (01) | LOC: RAD 11:37 | PROVIDERS: ATTEND Student in an Organized Health Care Education/Training Program | DX: J90 Pleural effusion, not elsewhere classified (principal); R91.8 Other nonspecific abnormal finding of lung field | CPT/HCPCS: 71046 ==

== ENCOUNTER 2023-12-01 11:24 | Day surgery (SDC) | payer MEDICARE, OTHER ==
[2023-11-30 16:32] VITALS: BMI 32.0
[2023-12-01] MEDS ORDERED: EPINEPHrine 1 MG/ML VIAL ONE (12:48)
[2023-12-01] MEDS ORDERED: Bupivacaine PF 0.5% 30 ML VIAL ONE (12:49)
[2023-12-01] MEDS ORDERED: Ondansetron PF 4 MG/2 ML Vial ONE (12:52)
[2023-12-01] MEDS ORDERED: Dexamethasone 4 mg/ml Vial ONE (12:52)
[2023-12-01] MEDS ORDERED: Lidocaine 1% PF 5 ML VIAL ONE (12:52)
[2023-12-01] MEDS ORDERED: PROPOFOL 40 ML ONE (12:52)
[2023-12-01] MEDS ORDERED: fentaNYL 50 mcg/mL 1 mL Vial ONE (12:57)
[2023-12-01] MEDS ORDERED: PHENYLEPHRINE-NS 100 MCG/ML 10 ML SYRINGE ONE (13:15)
[2023-12-01] MEDS ORDERED: CEFAZOLIN 1 GM VIAL ONE (13:20)
== END 2023-12-01 14:40 | disposition home or self-care (01) ==
LOC: SDC 11:24
PROVIDERS: ATTEND Student in an Organized Health Care Education/Training Program
PROC: 0WB80ZZ Excision of Chest Wall, Open Approach (ICD-10-PCS; principal; 2023-12-01)
DX: C76.1 Malignant neoplasm of thorax (principal); E03.9 Hypothyroidism, unspecified; Z88.5 Allergy status to narcotic agent; Z91.048 Other nonmedicinal substance allergy status; Z91.040 Latex allergy status; Z91.011 Allergy to milk products; Z79.890 Hormone replacement therapy
CPT/HCPCS: 21552; J0171; J3010; 88307; 88341; 88342; J0665; J0690; J1100; J2405; J2704

== ENCOUNTER 2023-12-18 15:47 | Outpatient (CLI) | payer MEDICARE, OTHER | END 2023-12-18 15:48 | disposition home or self-care (01) | LOC: RAD 15:47 | PROVIDERS: ATTEND Student in an Organized Health Care Education/Training Program | DX: R22.2 Localized swelling, mass and lump, trunk (principal); J90 Pleural effusion, not elsewhere classified; R91.8 Other nonspecific abnormal finding of lung field; J92.9 Pleural plaque without asbestos | CPT/HCPCS: 71046 ==